=== PATIENT | female | born 1990 | race Caucasian/White ===

== ENCOUNTER 2024-03-21 13:27 | Emergency (ER) | payer OTHER, SELFPAY ==
--- NOTE | ~2024-03-21 | CT_ITS ---
EXAMINATION: CT brain wo con DATE: 03/21/2024 14:11 INDICATION: Head injury. TECHNIQUE: Computed tomography (CT) of the head was performed without intravenous contrast. The mA wa s adjusted according to patient size. Iterative reconstruction technique was employed. The dose-lengt h product was 681.00 mGy-cm. COMPARISON: None FINDINGS: There is no intracranial hemorrhage, acute infarction, or abnormal intracranial mass lesion . The ventricles are normal in size. The orbits are normal. There is mucosal thickening in the parana margi sinuses. There is left periorbital soft tissue swelling. The mastoid air cells are normal. IMPRESSION: 1. Normal brain. Reviewed, dictated and finalized at location A. IMPRESSION: 1. Normal brain.
--- NOTE | ~2024-03-21 | CT_ITS ---
EXAMINATION: CT facial & cervical spine wo DATE: 03/21/2024 14:11 INDICATION: Head injury. TECHNIQUE: Computed tomography (CT) of the maxillofacial region and cervical spine was performed with out intravenous contrast. Automated exposure control and iterative reconstruction technique were empl oyed. The dose-length product was 681.00 mGy-cm. COMPARISON: None FINDINGS: MAXILLOFACIAL CT: There is left periorbital soft tissue swelling. The orbits are normal. There is a fracture of tip of left nasal bone. There is rightward deviation of the nasal septum. There is mild mucosal thickening i n the paranasal sinuses. The mastoid air cells are normal. There are carious lesions of bilateral man dibular molars. CERVICAL SPINE CT: There is mild kyphosis of cervical spine. Vertebral body heights are normal. Intervertebral disc heig hts are normal. The following disc levels are specifically discussed: C2-C3: There is no uncovertebral joint osteoarthritis. There is mild bilateral facet joint osteoarthr itis. There is no neural foraminal stenosis. There is no central canal stenosis. C3-C4: There is no uncovertebral joint osteoarthritis. There is mild left facet joint osteoarthritis. There is no neural foraminal stenosis. There is no central canal stenosis. C4-C5: There is mild bilateral uncovertebral joint osteoarthritis. There is no facet joint osteoarthr itis. There is mild right neural foraminal stenosis. There is no central canal stenosis. C5-C6: There is no uncovertebral joint osteoarthritis. There is no facet joint osteoarthritis. There is no neural foraminal stenosis. There is mild central canal stenosis. C6-C7: There is no uncovertebral joint osteoarthritis. There is no facet joint osteoarthritis. There is no neural foraminal stenosis. There is no central canal stenosis. C7-T1: There is no uncovertebral joint osteoarthritis. There is mild bilateral facet joint osteoarthr itis. There is no neural foraminal stenosis. There is no central canal stenosis. IMPRESSION: 1. Fracture of the tip of left nasal bone. 2. Mild cervical spondylosis. 3. Dental disease. Reviewed, dictated and finalized at location A.
[2024-03-21 13:29] VITALS: BP 153/109; PULSE 124; RESP 22; TEMP 36.9; O2SAT 99
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
--- NOTE | 2024-03-21 13:50 | PC.NURSE ---
REPORT TO TERESITA SNIDER AT [facility], PT HAS BEEN ACCEPTED BY [facility] TO THE ER.
[2024-03-21] MEDS: ONDANSETRON INJ 4 MG/2 ML VIAL IV PUSH (14:23)
[2024-03-21] MEDS: MORPHINE SULFATE (*CRX) 2 MG/ML INJ IV PUSH (14:23)
[2024-03-21 14:24] VITALS: BP 129/69; PULSE 94; RESP 18; TEMP 36.5; O2SAT 98
[2024-03-21 14:31] VITALS: BP 130/71; O2SAT 100
[2024-03-21 14:46] VITALS: BP 129/91; O2SAT 98
[2024-03-21] MEDS: TETANUS,DIPHTHERIA,AC PERTUSSIS ADULT 0.5 ML (ADACEL) IM (14:46)
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
--- NOTE | 2024-03-21 15:37 | PC.NURSE ---
NO MEDICATIONS ORDERED PER DC VERIFIED WITH ERP,ERP IS AWARE ENT DOES NOT TAKE PT'S INSURANCE, PT IS TO FOLLOW UP WITH PMD FOR CARE AND FURTHER TREATMENT
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
== END 2024-03-21 15:31 | disposition home or self-care (01) ==
PROVIDERS: Emergency Provider Internal Medicine Critical Care Medicine; PCP Physician Assistant
DX: S09.93XA Unspecified injury of face, initial encounter (principal); H05.232 Hemorrhage of left orbit; Z23 Encounter for immunization; Y04.2XXA Assault by strike against or bumped into by another person, initial encounter
CPT/HCPCS: 70450; 70486; 72125; 90471; 90715; 96374; 96375; 99284; J2270; J2405; L0150

== ENCOUNTER 2024-12-10 01:17 | Emergency (ER) | payer OTHER, SELFPAY ==
[2024-12-10 01:19] VITALS: BP 123/82; PULSE 95; RESP 18; TEMP 36.3; O2SAT 100
--- OUTSIDE RECORDS SUMMARY | 2024-12-10 01:19 | XMS_ITS | Clinical Summary ---
Author Organization [facility] Address [address] [place] [id number] Care Team Providers Care Tool Repairer Name Role Phone Demond Watts Primary Care Provider [phone] Demond Watts Unavailable Allergies Active Allergy Reactions Criticality Noted Date Comments Penicillins Rash Low 06/18/2022 Medications vitamin 27-1 MG Tab tablet Take 1 tablet by mouth daily. Active FLUoxetine HCl, PMDD, 20 MG Tab Take 20 mg by mouth daily. Active oxyCODONE-acetam inophen (PERCOCET) 5-325 MG tabletIndication s:Acute Pain < 3 Day Supply Take 1 tablet by mouth every 8 (eight) hours as needed for Pain. Indications : Acute Pain < 3 Day Supply 9 tablet 05/07/2022 Active FLUoxetine (PROZAC) 20 MG capsule Take 20 mg by mouth daily. Active meloxicam (MOBIC) 15 MG tabletIndication s:Rotator cuff strain, right, subsequent encounter Take 1 tablet (15 mg total) by mouth daily. 30 tablet 2 09/17/2022 Active Active Problems Problem Noted Date Diagnosed Date Traumatic tear of right rota tor cuff, unspecified tear extent, initial encounter 09/03/2022 Left ankle sprain 06/21/2019 Family History Medical History Relation Comments COPD Father Hyperlipidemia Father Asthma Mother Diabetes Mother Hyperlipidemia Mother Relation Status Comments Father Alive Mother Alive Social History Tobacco Use Types Packs/Day Years Used Date Smoking Tobacco: Smoker, Current Status Unknown Cigarettes Smokeless Tobacco: Never Chew Alcohol Use Standard Drinks/Week Comments Never 0 (1 standard drink = 0.6 oz pur e alcohol) rarely Comments No Sex and Gender Information Value Date Recorded Sex Assigned at Not on file Legal Sex Female 10:20 PM MEAT APPRENTICE Gender Identity Not on file Sexual Orientation Not on file Last Filed Vital Signs Vital Sign Reading Time Taken Comments Blood Pressure 132/67 08/07/2022 5:04 PM MEAT APPRENTICE Pulse 84 08/07/2022 5:04 PM MEAT APPRENTICE Temperature 36.4 C (97.5 F) 08/07/2022 5:04 PM MEAT APPRENTICE Respiratory Rate 16 08/07/2022 5:04 PM MEAT APPRENTICE Oxygen Saturation 97% 08/07/2022 5:04 PM MEAT APPRENTICE Inhaled Oxygen Concentration - - Weight 105.2 kg (232 lb) 09/17/2022 10:51 AM MEAT APPRENTICE Height 162.6 cm (5' 4 ) 09/17/2022 10:51 AM MEAT APPRENTICE Body Mass Index 39.82 09/17/2022 10:51 AM MEAT APPRENTICE Plan of Treatment Health Maintenance Due Date Last Done Comments Cervical Cancer Screening Pa p Smear (Age 30 to 64) Every 3 Years 1988 Annual Physical 1991 Hepatitis C 2006 DTaP, Tdap and Td Vaccines ( 1 - Tdap) 2007 Hepatitis B Vaccines (1 of 3 - 19+ 3-dose series) 2007 Pneumococcal Vaccine: Pediat rics (0 to 5 Years) and At-Risk Patients (6 to 49 Years) (1 of 2 - PCV) 2007 Cervical Cancer Screening Pa p with HPV Testing (Age 30 to 64) Every 5 Years 2018 Cervical Cancer Screening with HPV 2018 COVID-19 Vaccine (2023-2 5 season) 2024 HPV Vaccines Aged Out No longer eligi ble based on patient's age to complete this topic Meningococcal B Vaccine Aged Out No l onger eligible based on patient's age to complete this topic Meningococcal Vaccine Aged Out No kaushal princess eligible based on patient's age to complete this topic RSV Immunizations Under 20 Months Aged Out No longer eligible based on patient's age to complete this topic Insurance [employer] * Guarantor: Ally Samuel Account Type Relation to Patient Date of Phone Billing Address [place] [employer] Self 1990 [address] [place] [address] Care Teams Tool Repairer Relationship Specialty Start Date End Date Demond Watts PA [address] [place] [address] PCP - General PHYSICIAN PROCUREMENT REPRESENTATIVE 06/18/22 Demond Watts PA [address] [place] [address] PHYSICIAN PROCUREMENT REPRESENTATIVE 06/18/22
--- OUTSIDE RECORDS SUMMARY | 2024-12-10 01:19 | XMS_ITS | Clinical Summary ---
Author Organization [facility] Address [address] [place] [address] Care Team Providers Care Gastroenterology Physician Name Role Phone Demond Watts Primary Care Provider [phone] Jordan Orosco MD Unavailable [phone] Allergies Active Allergy Reactions Criticality Noted Date Comments Penicillins Hives,Rash Medium 04/08/2019 Medications FLUoxetine (PROzac) 20 mg tabletIndication s:Anxiety with Depression Take 20 mg by mouth daily Active ibuprofen (ADVIL,MOTRIN) 600 mg tabletIndication s:Cramps Take 1 tablet (600 mg total) by mouth every 6 (six) hours 30 tablet 05/02/2022 Active Active Problems Problem Noted Date Diagnosed Date Encounter for female sterilization procedure Overview (06/11/2022): Added automatically from request for surgery [id number] Maternal care due to low tra nsverse uterine scar from previous delivery 03/24/2022 Overview (04/01/2022): Added automatically from request for surgery [id number] Left ankle sprain 06/21/2019 Sprain of right knee 06/24/2018 Abnormal findings on screening 015 Overview (12/22/2020): 1:171 risk for DS Family history of other condition 05/07/2015 Overview (12/22/2020): Has seen genetics, no genetic Surgical History Surgery Date Site/Laterality Comments SECTION x2 CHOLECYSTECTOMY Medical History Medical History Date Comments Depression Herpes PONV (postoperative nausea and vomiting) Irritable bowel syndrome Anxiety Family History Medical History Relation Name Comments Hypertension Other Lung disease Other Seizures Other Relation Name Status Comments Other Social History Tobacco Use Types Packs/Day Years Used Date Smoking Tobacco: Every Day Vaping Smokeless Tobacco: Never Tobacco Cessation:Ready to Q uit: Not Asked; Counseling Given: Not Answered AUDIT-C Answer Date Recorded Frequency of Alcohol Consumption Not on file 07/22/2022 Q2: How many drinks containi ng alcohol do you have on a typical day when you are drinking? Patient does not drink Frequency of Binge Drinking Not on file 03/2022 Overall Financial Resource Strain (CARDIA) Answe r Date Recorded How hard is it for you to pa y for the very basics like food, housing, medical care, and heating? Very hard 12/17/2021 PRAPARE - Transportation Answer Date Re corded In the past 12 months, has l ack of transportation kept you from medical appointments or from getting medications? Yes 12/17/2021 Lack of Transportation (Non-Medical) Not on file 12/17/2021 Personal Safety Answer Date Recorded Getting School Help Needed Denies 07/29 Comments No Sex and Gender Information Value Date Recorded Sex Assigned at Not on file Legal Sex Female 2:16 AM CUSHION FILLER Gender Identity Not on file Sexual Orientation Not on file Obstetrics History Para Term AB IAB SAB Ectopic Multiple Livin g Live Births 3 1 1 1 1 1 Date Outcome GA Total Labor Labor/2nd/3rd Weight Sex Type Anes PTL Dania A1 A5 Name Clin Term F Living AB Last Filed Vital Signs Vital Sign Reading Time Taken Comments Blood Pressure 139/85 07/29/2022 2:35 PM CUSHION FILLER Pulse 65 07/29/2022 2:35 PM CUSHION FILLER Temperature 36.4 C (97.5 F) 07/29/2022 2:35 PM CUSHION FILLER Respiratory Rate 20 07/29/2022 2:35 PM CUSHION FILLER Oxygen Saturation 100% 07/29/2022 2:35 PM CUSHION FILLER Inhaled Oxygen Concentration - - Weight 104.5 kg (230 lb 6.1 oz) 022 10:35 AM CUSHION FILLER Height 162.6 cm (5' 4 ) 07/29/2022 10:3 5 AM CUSHION FILLER Body Mass Index 39.54 07/29/2022 10:35 AM CUSHION FILLER Plan of Treatment Health Maintenance Due Date Last Done Comments Cervical Cancer Screening 1988 Depression Screening 1988 Hepatitis C Screening 1988 Varicella Vaccines (1 of 2 - 13+ 2-dose series) 2001 Hepatitis B Screening 2006 Regular Well Visit/Exam 18-64 2006 Pneumococcal vaccine <65 (1 of 2 - PCV) 2007 Influenza Vaccine (#1) 2024 9, 07/02/2016, 07/01/2015 DTaP/Tdap/Td Vaccine (3 - Td or Tdap) 05/14/2026 05/14/2016, 07/01/2015 HPV Vaccines Aged Out No longer eligi ble based on patient's age to complete this topic Insurance MEDICAID [facility] [place] [place] [address] [facility] Advance Directives For more information, please contact: [phone] * Full Code (Latest Code Status on File) Date Activated Date Inactivated Comments 07/29/2022 2:23 PM 07/29/2022 6:46 PM * Full Code Date Activated Date Inactivated Comments 04/30/2022 11:03 PM 05/02/2022 9:16 PM * Full Code Date Activated Date Inactivated Comments 04/30/2022 1:25 PM 04/30/2022 11:03 PM Full CPR in case of cardiopulmonary arrest Care Teams Gastroenterology Physician Relationship Specialty Start Date End Date Demond Watts PA [address] [place] [address] PCP - General Family Practice 12/04/20 Jordan Orosco MD [address] [place] [address] DR SCHMIDT B [address] [address] Consulting Physician Obstetrics and Gynecology 05/02/22
--- OUTSIDE RECORDS SUMMARY | 2024-12-10 01:19 | XMS_ITS | Referral Summary ---
Author Organization [facility] Address [address] [place] [address] Care Team Providers Care Review Consultant Name Role Phone Demond Watts Primary Care Provider [phone] Jordan Orosco MD Unavailable + [phone] Allergies Active Allergy Reactions Criticality Noted Date [...] (06/11/2022): Added automatically from request for surgery [id number] Maternal care due to low tra nsverse uterine scar from previous delivery 03/24/2022 Overview (04/01/2022): Added automatically from request for surgery [id number] Left ankle sprain 06/21/2019 Sprain of right knee 06/24/2018 Abnormal findings on screening 015 Overview (12/22/2020): 1:171 risk for DS Family history of other condition 05/07/2015 Overview (12/22/2020): Has seen genetics, no genetic Social History Tobacco Use Types Packs/Day Years [...] on file Legal Sex Female 2:16 AM MELTER CLERK Gender Identity Not on file Sexual Orientation Not on file Last Filed Vital Signs Vital Sign Reading Time Taken Comments Blood Pressure 139/85 07/29/2022 2:35 PM MELTER CLERK Pulse 65 07/29/2022 2:35 PM MELTER CLERK Temperature 36.4 C (97.5 F) 07/29/2022 2:35 PM MELTER CLERK Respiratory Rate 20 07/29/2022 2:35 PM MELTER CLERK Oxygen Saturation 100% 07/29/2022 2:35 PM MELTER CLERK Inhaled Oxygen Concentration - - Weight 104.5 kg (230 lb 6.1 oz) 022 10:35 AM MELTER CLERK Height 162.6 cm (5' 4 ) 07/29/2022 10:3 5 AM MELTER CLERK Body Mass Index 39.54 07/29/2022 10:35 AM MELTER CLERK Plan of Treatment Not on file Insurance [facility] MEDICAID [facility] Member Subscriber Plan / Payer (Ef fective 2021-Present) Name:Ally Samuel Salomón Relation to Subscriber:Self Name:Ally Samuel Salomón Payer ID:[id number] (NAIC) Group ID:Not on file Type:MEDICAID RISK OTHER Address: ATTN: CLAIMS DEPT [address] [place] [id number] Advance Directives For more information, please contact: [phone] * Full Code (Latest Code Status on File) Date Activated Date Inactivated Comments 07/29/2022 2:23 PM 07/29/2022 6:46 PM * Full Code Date Activated Date Inactivated Comments 04/30/2022 11:03 PM 05/02/2022 9:16 PM * Full Code Date Activated Date Inactivated Comments 04/30/2022 1:25 PM 04/30/2022 11:03 PM Full CPR in case of cardiopulmonary arrest Care Teams Review Consultant Relationship Specialty Start Date End Date Nanney, Demond E., PA [address] [place] [address] PCP - General Family Practice 12/04/20 Jordan Orosco MD [address] [place] [address] DR SCHMIDT [address] [address] Consulting Physician Obstetrics and Gynecology 05/02/22
--- NOTE | 2024-12-10 01:21 | ED.UPPEXIN ---
HPI - Extremity Injury (Upper) General Chief Complaint: Skin/Abscess/Foreign Body Stated Complaint: upper extremity injury Time Seen by Provider: 12/10/24 01:21 Source: patient Mode of arrival: ambulatory Limitations: no limitations History of Present Illness HPI narrative: Patient is a 34-year-old female with a right hand redness and pain and swelling with unknown cause of infection. She thinks maybe it was from a belt buckle that she hit herself on a dashboard that she accidentally hit or weed whacking. complaint: injury to: right Onset (ago): day(s) (1) Other injuries: none Place: home Severity: moderate Severity scale (1-10): 4 Relieving factors: immobilization Exacerbating factors: movement of extremity Context: other ( unclear per patient) Associated symptoms: denies other symptoms Treatments prior to arrival: splint Related Data Allergies Allergy/AdvReac Type Severity Reaction Status Date / Time Penicillins Allergy Unknown Verified 12/10/24 02:26 Review of Systems Review of Systems: All systems reviewed & are unremarkable except as noted in HPI and below Constitutional: Constitutional: Reports no additional constitutional complaints Eyes: Eyes: Reports no additional eye complaints ENT: Reports system reviewed and no additional complaints, except as documented Cardiovascular: Cardiovascular: Reports no additional cardiovascular complaints Respiratory: Respiratory: Reports no additional respiratory complaints Gastrointestinal: Gastrointestinal: Reports no additional gastrointestinal complaints Genitourinary: Genitourinary: Reports no additional female genitourinary complaints Musculoskeletal: Musculoskeletal: Reports no additional musculoskeletal complaints Integumentary/Breasts: Skin/Breast: Reports system reviewed and no additional complaints, except as docu Neurologic: Reports system reviewed and no additional complaints, except as documented Psychiatric: Psychiatric: Reports no additional psychiatric complaints Endocrine: Endocrine: Reports no additional endocrine complaints Hematologic/Lymphatic: Hematologic/Lymphatic: Reports no additional hematologic/lymphatic complaints Allergic/Immunologic: Allergic/Immunologic: Reports no additional allergic/immunologic complaints PMFSH Surgical History Surgical History Previous section Exam Const: General: healthy appearing Nutritional Appearance: well nourished Orientation/consciousness: patient oriented x3 Limitations: no limitations HENMT: Head: normal to inspection Ears: external ears normal Face/Nose/Sinus: Normal external nose present Eyes: Conjunctivae: conjunctivae normal Pupils: Equal, round and reactive pupils present EOM: EOMs intact bilaterally Neck: Neck: normal visual inspection Chest: Chest palpation & inspection: normal inspection of the chest Resp: Effort & Inspection: normal respiratory effort and not labored Auscultation: clear to auscultation bilaterally and no crackles Cardio: Rate: regular rate Rhythm: regular rhythm Heart sounds: no murmurs GI: Inspection: non-distended GI Palp: Yes Soft to palpation and No Tenderness to palpation present (GI) Auscultation: normal bowel sounds : General: Yes bladder normal to palpation Back/Spine/Pelvis: Back: no CVA tenderness Skin: General skin exam: normal color Rashes: no rashes Wounds: no wounds Other: right hand extensor surface near the index finger has a linear streaking with erythema and there are at least 3-4 puncture adam on the hand of unclear origin ( IVDA? ) Neuro: General: patient oriented x3 Cranial nerves: Yes Nystagmus not present Speech: normal speech Gait exam (Neuro): Normal gait present Extrem: General: normal to inspection Psych: Mental Status: mental status grossly normal Affect: normal affect Attitude: cooperative Course Vital Signs Vital signs: Vital Signs Temperature 36.3 C L 12/10/24 01:19 Pulse Rate 95 12/10/24 01:19 Respiratory Rate 18 12/10/24 01:19 Blood Pressure 123/82 12/10/24 01:19 Pulse Oximetry 100 12/10/24 01:19 Oxygen Delivery Room Air 12/10/24 01:19 Temperature 36.3 C L 12/10/24 01:19 Pulse Rate 95 12/10/24 01:19 Respiratory Rate 18 12/10/24 01:19 Blood Pressure 123/82 12/10/24 01:19 Pulse Oximetry 100 12/10/24 01:19 Oxygen Delivery Room Air 12/10/24 01:19 MDM - Extremity Injury (Upper) MDM Narrative Medical decision making narrative: Patient is a 34-year-old female with a right hand infection of the skin with streaking. We will go ahead and get labs and sepsis rule out and we will start antibiotics. Lab Data Attestation: I reviewed the patient's lab results. 12/10/24 01:49 12/10/24 01:49 Labs: Lab Results 12/10/24 Range/Units 01:49 WBC 8.8 (4.8-10.8) K/mm3 RBC 4.35 (4.20-5.40) M/mm3 Hgb 12.8 (12.0-15.0) g/dL Hct 39.1 (35.0-49.0) % MCV 89.9 (78.0-102.0) fL MCH 29.4 (27.0-31.0) pg MCHC 32.7 (32-36) g/dL RDW 11.9 (11.6-14.4) % Plt Count 223 (150-420) K/mm3 MPV 9.8 (9.2-11.8) fl Immature Gran % (Auto) 0.3 H (0.0-0.0) % Neut % (Auto) 63.7 (50.0-70.0) % Lymph % (Auto) 25.7 (18.0-42.0) % [place] % (Auto) 8.9 (2.0-11.0) % Eos % (Auto) 0.9 L (1.0-6.0) % Baso % (Auto) 0.5 (0.0-1.0) % Lymph # (Auto) 2.26 (1.10-4.50) K/mm3 [place] # (Auto) 0.78 (0.10-0.90) K/mm3 Eos # (Auto) 0.08 (0.02-0.50) K/mm3 Baso # (Auto) 0.04 (0.00-0.10) K/mm3 Abs Immat Gran (auto) 0.03 H (0.00-0.00) K/mm3 Absolute Neuts (auto) 5.60 (1.70-7.20) K/mm3 Absolute Nucleated RBC 0.00 (0.00-0.00) K/mm3 Nucleated RBC % 0.0 (0-0.0) % Sodium 139 (136-145) mmol/L Potassium 3.7 (3.5-5.1) mmol/L Chloride 104 (98-108) mmol/L Carbon Dioxide 29 (21-32) mmol/L Anion Gap 6 (4-12) mmol/L BUN 12 (7-18) mg/dL Creatinine 0.74 (0.55-1.02) mg/dL Estim Creat Clear Calc 89 ml/min Estimated GFR > 60 (59 - ) Glucose 123 H (70-99) mg/dL Calculated Osmolality 288 (285-295) mOsm/kg Lactic Acid Pending Calcium 8.9 (8.5-10.1) mg/dL Total Bilirubin 0.6 (0.00-1.00) mg/dL AST 17 (15-37) U/L ALT 26 (14-59) U/L Alkaline Phosphatase 75 (46-116) U/L Total Protein 6.9 (6.4-8.2) g/dL Albumin 3.4 (3.4-5.0) g/dL Discharge Plan Discharge Clinical Impression: Cellulitis Qualifiers: Site of cellulitis: extremity Site of cellulitis of extremity: upper extremity Laterality: right Qualified Code(s): L03.113 - Cellulitis of right upper limb Patient Disposition: Home Condition: Stable Instructions: Antibiotic Form, Cellulitis (ED) Patient Language: Finnish Prescriptions: New clindamycin HCl [Cleocin HCl] 300 mg capsule 300 mg PO QID 10 Days Qty: 40 0RF hydrocodone-acetaminophen 5-325 mg tablet 1 tablet PO Q8H PRN (Reason: pain) Qty: 20 0RF Rx Instructions: 1-2 per dose Follow-up/Referrals: Mac,CUCA Wells [Primary Care Provider] - Time of Disposition: 02:32
--- OUTSIDE RECORDS SUMMARY | 2024-12-10 01:42 | XMS_ITS | Clinical Summary ---
Author Organization [facility] Address [address] [place] [address] Care Team Providers Care Delivery Nurse Name Role Phone Demond Watts Primary Care Provider [phone] Demond Watts Unavailable Allergies Active Allergy Reactions [...] on file Legal Sex Female 10:20 PM DO ALL OPERATOR Gender Identity Not on file Sexual Orientation Not on file Last Filed Vital Signs Vital Sign Reading Time Taken Comments Blood Pressure 132/67 08/07/2022 5:04 PM DO ALL OPERATOR Pulse 84 08/07/2022 5:04 PM DO ALL OPERATOR Temperature 36.4 C (97.5 F) 08/07/2022 5:04 PM DO ALL OPERATOR Respiratory Rate 16 08/07/2022 5:04 PM DO ALL OPERATOR Oxygen Saturation 97% 08/07/2022 5:04 PM DO ALL OPERATOR Inhaled Oxygen Concentration - - Weight 105.2 kg (232 lb) 09/17/2022 10:51 AM DO ALL OPERATOR Height 162.6 cm (5' 4 ) 09/17/2022 10:51 AM DO ALL OPERATOR Body Mass Index 39.82 09/17/2022 10:51 AM DO ALL OPERATOR Plan of Treatment Health Maintenance Due Date [...] patient's age to complete this topic Insurance [employer] * Guarantor: Ally Samuel Account Type Relation to Patient Date of Phone Billing Address [place] [employer] Self 1990 [address] [place] [address] Care Teams Delivery Nurse Relationship Specialty Start Date End Date Demond Watts PA [address] [place] [address] PCP - General PHYSICIAN JUNIOR ACCOUNT MANAGER 06/18/22 Demond Watts PA [address] [place] [address] PHYSICIAN JUNIOR ACCOUNT MANAGER 06/18/22
--- OUTSIDE RECORDS SUMMARY | 2024-12-10 01:42 | XMS_ITS | Clinical Summary ---
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 POWER WHEELCHAIR MECHANIC Gender Identity Not on file Sexual Orientation [...] Comments Blood Pressure 139/85 07/29/2022 2:35 PM POWER WHEELCHAIR MECHANIC Pulse 65 07/29/2022 2:35 PM POWER WHEELCHAIR MECHANIC Temperature 36.4 C (97.5 F) 07/29/2022 2:35 PM POWER WHEELCHAIR MECHANIC Respiratory Rate 20 07/29/2022 2:35 PM POWER WHEELCHAIR MECHANIC Oxygen Saturation 100% 07/29/2022 2:35 PM POWER WHEELCHAIR MECHANIC Inhaled Oxygen Concentration - - Weight 104.5 kg (230 lb 6.1 oz) 022 10:35 AM POWER WHEELCHAIR MECHANIC Height 162.6 cm (5' 4 ) 07/29/2022 10:3 5 AM POWER WHEELCHAIR MECHANIC Body Mass Index 39.54 07/29/2022 10:35 AM POWER WHEELCHAIR MECHANIC Plan of Treatment Health Maintenance Due Date [...] age to complete this topic [place] [address] [facility] [place] [address] [facility] Advance Directives For more information, please contact: [phone] * Full Code (Latest Code Status on File) Date Activated Date Inactivated Comments 07/29/2022 2:23 PM 07/29/2022 6:46 PM * Full Code Date Activated Date Inactivated Comments 04/30/2022 11:03 PM 05/02/2022 9:16 PM * Full Code Date Activated Date Inactivated Comments 04/30/2022 1:25 PM 04/30/2022 11:03 PM Full CPR in case of cardiopulmonary arrest Care Teams Line Locator Relationship Specialty Start Date End Date Demond Watts PA [address] [place] [address] PCP - General Family Practice 12/04/20 Jordna Orosco MD [address] [place] [address] DR SCHMIDT B [address] [address] Consulting Physician Obstetrics and Gynecology 05/02/22
--- OUTSIDE RECORDS SUMMARY | 2024-12-10 01:42 | XMS_ITS | Referral Summary ---
Author Organization [facility] Address [address] [place] [address] Care Team Providers Care Electronic Scanner Operator Name Role Phone Demond Watts Primary Care Provider [phone] Jordan Orosco MD Unavailable + [phone] Allergies Active Allergy Reactions Criticality Noted Date [...] (06/11/2022): Added automatically from request for surgery [id number] Maternal care due to low tra nsverse uterine scar from previous delivery 03/24/2022 Overview (04/01/2022): Added automatically from request for surgery [id number] Left ankle sprain 06/21/2019 Sprain of right [...] on file Legal Sex Female 2:16 AM DOCUMENT COORDINATOR Gender Identity Not on file Sexual Orientation Not on file Last Filed Vital Signs Vital Sign Reading Time Taken Comments Blood Pressure 139/85 07/29/2022 2:35 PM DOCUMENT COORDINATOR Pulse 65 07/29/2022 2:35 PM DOCUMENT COORDINATOR Temperature 36.4 C (97.5 F) 07/29/2022 2:35 PM DOCUMENT COORDINATOR Respiratory Rate 20 07/29/2022 2:35 PM DOCUMENT COORDINATOR Oxygen Saturation 100% 07/29/2022 2:35 PM DOCUMENT COORDINATOR Inhaled Oxygen Concentration - - Weight 104.5 kg (230 lb 6.1 oz) 022 10:35 AM DOCUMENT COORDINATOR Height 162.6 cm (5' 4 ) 07/29/2022 10:3 5 AM DOCUMENT COORDINATOR Body Mass Index 39.54 07/29/2022 10:35 AM DOCUMENT COORDINATOR Plan of Treatment Not on file Insurance [facility] MEDICAID [facility] [place] [facility] Member Subscriber Plan / Payer (Ef fective 2021-Present) Name:Ally Samuel Salomón Relation to Subscriber:Self Name:Ally Samuel Salomón Payer ID:[id number] (NAIC) Group ID:Not on file Type:MEDICAID RISK OTHER Address: ATTN: CLAIMS DEPT [address] [place] [phone] Advance Directives For more information, please contact: [phone] * Full Code (Latest Code Status on File) Date Activated Date Inactivated Comments 07/29/2022 2:23 PM 07/29/2022 6:46 PM * Full Code Date Activated Date Inactivated Comments 04/30/2022 11:03 PM 05/02/2022 9:16 PM * Full Code Date Activated Date Inactivated Comments 04/30/2022 1:25 PM 04/30/2022 11:03 PM Full CPR in case of cardiopulmonary arrest Care Teams Electronic Scanner Operator Relationship Specialty Start Date End Date Nanney, Demond E., PA [address] [place] [address] PCP - General Family Practice 12/04/20 Jordan Orosco MD [address] [place] [address] DR SCHMIDT [address] [address] Consulting Physician Obstetrics and Gynecology 05/02/22
[2024-12-10 01:54] LABS: Basophils Absolute Auto 0.04 K/mm3 (0.00-0.10); Basophils Percent Auto 0.5 % (0.0-1.0); Eosinophils Absolute Auto 0.08 K/mm3 (0.02-0.50); Eosinophils Percent Auto 0.9 % (1.0-6.0); Hematocrit 39.1 % (35.0-49.0); Hemoglobin 12.8 g/dL (12.0-15.0); Immature Granulocyte Absolute 0.03 K/mm3 (0.00-0.00); Immature Granulocyte Percent A 0.3 % (0.0-0.0); Lymphocytes Absolute Auto 2.26 K/mm3 (1.10-4.50); Lymphocytes Percent Auto 25.7 % (18.0-42.0); Mean Corpuscular HGB Conc 32.7 g/dL (32-36); Mean Corpuscular Hemoglobin 29.4 pg (27.0-31.0); Mean Corpuscular Volume 89.9 fL (78.0-102.0); Mean Platelet Volume 9.8 fl (9.2-11.8); Monocytes Absolute Auto 0.78 K/mm3 (0.10-0.90); Monocytes Percent Auto 8.9 % (2.0-11.0); Neutrophils Percent Auto 63.7 % (50.0-70.0); Platelet Count Result 223 K/mm3 (150-420); Red Blood Count 4.35 M/mm3 (4.20-5.40); Red Cell Distribution Width 11.9 % (11.6-14.4); White Blood Count 8.8 K/mm3 (4.8-10.8)
[2024-12-10 02:07] LABS: Alanine Aminotransferase 26 U/L (14-59); Albumin Level 3.4 g/dL (3.4-5.0); Alkaline Phosphatase 75 U/L (46-116); Anion Gap 6 mmol/L (4-12); Aspartate Amino Transferase 17 U/L (15-37); Bilirubin,Total 0.6 mg/dL (0.00-1.00); Blood Urea Nitrogen 12 mg/dL (7-18); Calcium 8.9 mg/dL (8.5-10.1); Carbon Dioxide 29 mmol/L (21-32); Chloride 104 mmol/L (98-108); Estimated CRCL calculation 89 ml/min; Estimated Glomerular Filt Rate > 60; Glucose 123 mg/dL (70-99); Osmolality Calculated 288 mOsm/kg (285-295); Potassium 3.7 mmol/L (3.5-5.1); Sodium 139 mmol/L (136-145); Total Protein 6.9 g/dL (6.4-8.2)
[2024-12-10] MEDS: CLINDAMYCIN HCL 150 MG CAP 300 MG PO (02:33)
[2024-12-10] MEDS: HYDROcodone/acetaminophen (*CRX) 5-325 MG TABLET 1 TAB PO (02:33)
[2024-12-10 02:51] LABS: Lactic Acid Reflex 1.8 mmol/L (0.4-2.0)
--- NOTE | 2024-12-12 13:04 | PC.NURSE ---
preliminary blood culture , no growth
--- NOTE | 2024-12-16 13:29 | PC.NURSE ---
blood culture , final, no growth
== END 2024-12-10 02:53 | disposition home or self-care (01) ==
PROVIDERS: Emergency Provider Emergency Medicine; PCP Physician Assistant
DX: L03.113 Cellulitis of right upper limb (principal)
CPT/HCPCS: 36415; 80053; 83605; 85025; 87040; 99283; A9270